=== PATIENT | male | born 1950 | race Caucasian/White ===

== ENCOUNTER 2017-06-18 05:40 | Inpatient (IN) | payer MEDICARE, OTHER ==
--- NOTE | 2017-06-11 12:44 | NUR ---
PATIENT HERE TODAY FOR PREADMISSION APPOINTMENT. PATIENT IS SCHEDULED TO HAVE A LEFT TOTAL KNEE REPLACEMENT ON 06/18/17. HE REPORTS HAVING A PHYSICAL THERAPY APPOINTMENT ON 06/05/17 AND WOULD LIKE PHYSICAL THERAPY SET UP AT THE [facility] AFTER SURGERY. PATIENT REPORTS HAVING 2 STEPS INTO THE HOME AND NUMEROUS STEPS INSIDE THE HOME. HE REPORTS THEY WILL BE MOVING THEIR BEDROOM TO THE MAIN FLOOR SO HE WILL NOT HAVE TO GO DOWN STAIRS. HE WILL BE INSTALLING A HAND RAIL OUTSIDE THIS WEEKEND TO HELP WITH GOING UP THE STAIRS. HE WAS OBTAINED A FRONT WHEELED WALKER AND IS GOING TO GET A SHOWER BENCH. HE WILL BE USING THE BATHROOM THAT HAS A TUB SHOWER COMBO. HIS BRAYDON WILL BE HERE WITH HIM ON DAY OF SURGERY AND WILL TRANSPORT HIM HOME AND TO APPOINTMENTS. THIS INFORMATION WILL BE SENT TO DR SCOTTY OROPEZA AND AMBER PLANNING FOR FURTHER FOLLOW UP.
[~2017-06-18] VITALS: Ht 180.3 cm; Wt 111.1 kg
[~2017-06-18 05:40] MED LIST: ALLOPURINOL300 MG PO; CARTIA XT180 MG PO; CINNAMON500 MG PO; ENALAPRIL MALEAT5 MG PO; GEMFIBROZIL600 MG PO; OMEPRAZOLE20 MG PO; PROBENECID500 MG PO; QUESTRAN PACKET4 GM PO
--- NOTE | 2017-06-18 09:30 | NUR ---
PT ARRIVED VIA HOSPITAL BED. PT AWAKE, ALERT AND ORIENTED TO ALL. DENIES NAUSEA, PAIN, OR OTHER CONCERNS AT THIS TIME. LEFT KNEE DRESSING CDI AT THIS TIME. TEDS, SCD'S, CRYOCUFF, AND HEEL PROTECTORS IN PLACE. SENSATION AT L4, L5, SLIGHT MOVEMENT NOTED, CAP REFILL 3 SEC. IV INFUSING WNL IN RIGHT HAND. PT SATTING 94% ON RA. AT BEDSIDE. PT TAKING SIPS OF WATER, GORDON WELL. CLEAR LIQUID TRAY ORDERED. CALL LIGHT WITHIN REACH.
--- NOTE | 2017-06-18 10:09 | OR ---
[facility] [address] [place], [place] [address] Signed DATE OF OPERATION: 06/18/2017 SURGEON: Rafael Clarke MD PREOPERATIVE DIAGNOSIS: degenerative joint disease severe, left knee. POSTOPERATIVE DIAGNOSIS: degenerative joint disease severe, left knee. PROCEDURE PERFORMED: Left total knee arthroplasty with computer navigation. SECURITIES LENDING TRADER: Brittany Aguilar MS4 ANESTHESIA: Spinal. BLOOD LOSS: Minimal. TOURNIQUET TIME: 68 minutes. IMPLANTS: Shannan Triathlon size 6 femur, size 5 tibia, 13 mm insert, and 35 mm patella. BRIEF HISTORY: Chester is a 67-year-old gentleman with severe arthritis in his knees. He had undergone nonoperative treatment, which was successful for a while, however, became more and more problematic. He wished to proceed with operative intervention. DESCRIPTION OF PROCEDURE: Once consent was obtained, he was taken to the operating room. After adequate anesthesia, placed on operating table. All downside pressure points are well padded. The left hip was placed on a hip bump and left leg was placed in proximal padded tourniquet and leg was prepped and draped in standard sterile fashion. Leg was exsanguinated using Esmarch bandage. Tourniquet inflated to 250 mmHg. Standard anterior approach through curved incision was taken through skin and subcutaneous Electronically Signed By: RAFAEL CLARKE MD 06/18/17 1009 PATIENT NAME: CHESTER ADAMS OPERATIVE REPORT DATE OF : 54 REPORT #: [id number] PHYSICIAN: RAFAEL CLARKE MD PCP: NO PRIMARY CARE PHYSICIAN REPORT IS CONFIDENTIAL AND NOT TO BE RELEASED WITHOUT AUTHORIZATION [facility] [address] [place], [place] [address] Signed tissue. Median parapatellar arthrotomy was performed. The infrapatellar fat pad was excised and the MCL was elevated of a sleeve around the posteromedial corner. The knee was flexed. The anterior horns of the menisci and the ACL were transected. The PCL was found to be intact. The navigation guide was pinned to the distal femur and the femur was registered with the computer. The cutting block was then pinned in neutral alignment. Distal femoral cut was made. Distal femur sized to a 6 and the 6 cutting block was pinned in line with the epicondylar axis. The anterior, posterior, and chamfer cuts were made. All osteophytes were excised as we went. There were multiple large osteophytes. Attention was then turned to the proximal tibia. The menisci removed to allow better visualization. The navigation guide was pinned to the tibia and the tibia was registered with the computer. A cutting block was then pinned in neutral alignment and the cut was made with care taken to protect the patellar tendon and MCL. Bone was excised as were any meniscal remnants. Posterior release was performed off the femur and posterior osteophytes removed. Flexion and extension gaps were sized and found to be symmetric at 13 mm. The trials were then positioned. Knee was taken through range of motion and found to be stable. Anderson test was negative. The patella was cut, sized, and drilled for a 35 patella. The distal femoral drill holes were made and the trials were removed. The proximal tibia was finished using the keel punch. The bone was pulse lavaged and packed with a dry Ray-Anjali. Cement was mixed when it reached proper consistency, displaced all implants on all bone surfaces. Tibia was impacted in position first and all excess cement was removed. The polyethylene was snapped into position. The femur was impacted. Again any remaining cement was removed. The knee was extended and nicely loaded. The patella was clamped and any remaining cement was removed. The cement was allowed to harden. Once it hardened sufficiently, the knee was flexed and the remaining cement was removed using osteotomes. The knee was pulse lavaged at intervals throughout the procedure. A total of 3 L antibiotic irrigation was used. The periarticular soft tissues were injected with 100 mL ropivacaine, Toradol mixture. The arthrotomy was closed using #2 Stratafix, 0 Stratafix for subcutaneous tissue, and jory for the skin. The wounds were dressed with Mepilex, Ag dressing, ABD and Alejandro wrap. He tolerated the procedure well. All sponge, needle, and instrument counts were correct. Rafael Clarke MD BA/MODL /[id number] Electronically Signed By: RAFAEL CLARKE MD 06/18/17 1009 PATIENT NAME: CHESTER ADAMS OPERATIVE REPORT DATE OF : 54 REPORT #: [id number] PHYSICIAN: RAFAEL CLARKE MD PCP: NO PRIMARY CARE PHYSICIAN REPORT IS CONFIDENTIAL AND NOT TO BE RELEASED WITHOUT AUTHORIZATION [address] [address] Signed Copies: ~ Electronically Signed By: RAFAEL CLARKE MD 06/18/17 1009 PATIENT NAME: CHESTER ADAMS OPERATIVE REPORT DATE OF : 54 REPORT #: [id number] PHYSICIAN: RAFAEL CLARKE MD PCP: NO PRIMARY CARE PHYSICIAN REPORT IS CONFIDENTIAL AND NOT TO BE RELEASED WITHOUT AUTHORIZATION
--- NOTE | 2017-06-18 10:40 | NUR ---
PT DROWSY, FALLS ASLEEP EASILY. SATTING 88% ON RA WHILE SLEEPING, PLACED ON 1L NC SATTING 93%. KNEE DRESSING REMAINS CDI. AT BEDSIDE.
--- NOTE | 2017-06-18 11:24 | NUR ---
PT SITTING UP IN BED, ATE ALL OF CLEAR LIQUID TRAY, GORDON WELL. ORDERED REG LUNCH. DENIES PAIN, PT HAS SENSATION TO TOES BUT STATED LEGS AND FEET ARE STILL "A LITTLE TINGLY". GOOD MOVEMENT. DRESSING CDI. CALL LIGHT WITHIN REACH.
--- NOTE | 2017-06-18 13:21 | NUR ---
PT ATE TURKEY SANDWICH, GORDON WELL. DENIES NEEDS OR CONCERNS AT THIS TIME. CALL LIGHT WITHIN REACH, AT BEDSIDE.
--- NOTE | 2017-06-18 13:59 | NUR ---
PATIENT RESTING IN BED WITH EYES CLOSED. IN ROOM. FRESH ICE IN CRYO. NO OTHER NEEDS AT THIS TIME. CALL BUTTON IN REACH.
--- NOTE | 2017-06-18 15:40 | NUR ---
PT SBA WITH WALKER TO RESTROOM, ATTEMPTED TO VOID BUT UNABLE TO. BLADDER SCANNED FOR 390ML OF URINE. PT WILL ATTEMPT TO VOID AGAIN SOON. PT AMB BACK TO RECLINER SITTING UP VISITING WITH FAMILY. DENIES PAIN OR OTHER CONCERNS AT THIS TIME. PT OCC DESATS TO 88% ON RA SO WILL KEEP PT ON 1LNC. PT ENCOURAGED TO USE I.S.
--- NOTE | 2017-06-18 17:50 | NUR ---
PT ATE ALL OF DINNER, GORDON WELL. SITTING UP IN RECLINER, AT BEDSIDE. DENIES PAIN OR OTHER CONCERNS. CALL LIGHT WITHIN REACH.
--- NOTE | 2017-06-18 19:12 | NUR ---
BEDSIDE REPORT RECEIVED FROM KRISTIE FELIX. PT SITTING IN CHAIR, AWAKE, ALERT, CONVERSING. RIVERA CATHETER DRAINING. CRYO CUFF WITH ICE TO LEFT KNEE, DRESSING CDI, SENSATION INTACT. PT DENIES ANY PAIN AT THIS TIME. IV SALINE LOCKED. HR 101, SPO2 93% ON RA. PT HAS ICE WATER, PERSONAL SUPPLIES, AND CALL LIGHT IN REACH.
--- NOTE | 2017-06-18 19:17 | NUR ---
PT UNABLE TO VOID. BLADDER SCANNED FOR 600ML. RIVERA PLACED, 750ML OF RETURN. PT GORDON WELL. AMB FROM BED TO RECLINER WITH WALKER. SITTING UP, TEDS, SCD'S, CRYOCUFF IN PLACE. PERSONAL BELONGINGS WITHIN REACH. PT DENIES PAIN OR OTHER CONCERNS. LEFT KNEE DRESSING CDI.
--- NOTE | 2017-06-18 20:45 | NUR ---
PT ASSESSMENT COMPLETE. SBA WITH FWW TO BED, PT GORDON WELL, USING WALKER EFFECTIVELY. DRESSING CDI ON LEFT KNEE, ICE IN CRYO CUFF, CRYO CUFF IN PLACE. SCDS, ROSA HOSE, HEEL PROTECTORS ON. CSM INTACT BLE, BUE. PT DENIES PAIN. IV FLUSHED WNL, SALINE LOCKED. PT TOLERATING ORAL FLUIDS WELL, DENIES NUASEA, BOWEL TONES ACTIVE X 4. RIVERA CATHETER DRAINING WNL, ORANGE IN COLOR DUE TO MEDICATION ADMIN. PT GIVEN CALL LIGHT, EDUCATED ON SAFETY, FALL PREVENTION. SPO2 95% ON ROOM AIR AT THIS TIME. WILL CONTINUE TO MONITOR.
--- NOTE | 2017-06-18 22:30 | NUR ---
STUDENT FINANCE ADVISOR RN IN PT ROOM, 1L OXYGEN BY NC APPLIED SPO2 91% ON ROOM AIR PT RESTING, PULSE OX ALARMING.
--- NOTE | 2017-06-18 22:51 | NUR ---
IN PT ROOM FOR ANCEF ADMINISTRATION, IV FLUSHED WNL. CRYO CUFF REFILLED WITH ICE AT THIS TIME, SCDS, ROSA HOSE, HEEL PROTECTORS IN PLACE. CRYO CUFF ON LEFT KNEE. PT GIVEN ICE WATER REQUESTED. CALL LIGHT IN REACH, LIGHTS OFF IN ROOM.
--- NOTE | 2017-06-19 00:38 | NUR ---
CHECKED ON PT, PT APPEARS TO BE SLEEPING, EYES CLOSED, BREATHING NON-LABORED, SPO2 95% ON 1L OXYGEN. SCDS, CRYO CUFF AND HEEL PROTECTORS IN PLACE, LIGHTS OFF IN ROOM.
--- NOTE | 2017-06-19 01:55 | NUR ---
PT APPEARS TO BE SLEEPING, AWAKENS TO RN VOICE, DROWSY, ORIENTED X 3. PT ON 1L OXYGEN BY NC SATURATING WNL. RIVERA EMPTIED. PT DENIES PAIN. CSM INTACT BLE. CRYO CUFF WITH ICE ON LEFT KNEE. LUNGS CLEAR THROUGHOUT ALL LOBES, HR REGULAR RHYTHM. BOWEL TONES ACTIVE X 4, ABD SOFT, PT DENIES NAUSEA. SCHEDULED IV TORADOL ADMINISTERED WNL. CALL LIGHT IN REACH. ROSA HANNA, SCDS, HEEL PROTECTORS IN PLACE.
--- NOTE | 2017-06-19 04:14 | NUR ---
CHECKED ON PT, PT APPEARS TO BE SLEEPING SPO2 95% ON 1L OXYGEN BY NC, SNORING, EYES CLOSED, SCDS, CRYO CUFF, HEEL PROTECTORS IN PLACE. LIGHTS OFF IN ROOM.
--- NOTE | 2017-06-19 06:40 | NUR ---
PATIENTS RIVERA REMOVED AND DOCUMNETED. PATIENT TOLERATED REMOVAL WELL. FAMILIA FLOWERS IN THE ROOM TO ADMIN MEDCIATIONS.
--- NOTE | 2017-06-19 06:52 | NUR ---
PT DENIES ANY PAIN AT THIS TIME. SCHEDULED TYLENOL ADMINISTERED. PT 95% ON 1L OXYGEN BY NC. ICE IN CRYO CUFF ON LEFT KNEE. SCDS, HEEL PROTECTORS, ROSA HOSE IN PLACE. PT GIVEN ICE WATER REQUESTED. ELENA TOM IN ROOM TO ASSIST PT TO RESTROOM FOR ORAL CARE. MIGUEL D/C'D BY KRISTIE SANCHES.
--- NOTE | 2017-06-19 06:56 | NUR ---
PT DENIES PAIN THROUGHOUT SHIFT, DENIES NAUSEA, TOLERATING REGULAR DIET WELL. DRESSING CDI, CSM INTACT BLE, SCDS, ROSA HOSE, CRYO CUFF, AND HEEL PROTECTORS IN PLACE. ON 1L OXYGEN W SLEEP SATURATING WNL. IV SALINE LOCKED. USING CALL LIGHT APPROPRIATELY. 1P SBA WITH FWW.
--- NOTE | 2017-06-19 07:32 | NUR ---
PATIENT AWAKE SITTING IN RECLINER. RECEIVED BEDSIDE REPORT FROM FAMILIA FLOWERS. NO PAIN AT THIS TIME. RIVERA DISCONTINUED AT 0630. WILL MONITOR URINE OUTPUT. EXPECT PHYSICAL THERAPY TO WORK WITH PATIENT AROUND 0900. SALINE LOCKED IN RIGHT HAND.
--- NOTE | 2017-06-19 08:27 | NUR ---
PATIENT SITTING UP IN CHAIR. FRESH COFFEE. CALL LIGHT WITHIN REACH. NO OTHER NEEDS AT THIS TIME.
--- NOTE | 2017-06-19 08:44 | NUR ---
pt plans to work with physical therapy at 0900. no pain at this time. likely home this afternoon with physical therapy approval.
--- NOTE | 2017-06-19 10:32 | NUR ---
MED REC COMPLETED
--- NOTE | 2017-06-19 11:09 | NUR ---
PT UNABLE TO VOID. BLADDER SCANNED. 655ML IN BLADDER. CALLED DR FAJARDO. ORDER TO REPLACE RIVERA CATHETER AND REMOVE AT 0600 TOMORROW. PATIENT WISHES TO TRY AGAIN UNTIL 1200. THIS RN WILL ALLOW THIS, BUT NOT WAIT PAST 1200.
--- NOTE | 2017-06-19 12:21 | NUR ---
catheter inserted at 1210. some pain with insertion, but relief of bladder afterwards. visitors at bedside now.
--- NOTE | 2017-06-19 12:51 | NUR ---
CATHETER EMPTIED BY PACKAGE MAKERMALKA. 975ML YELLOW URINE OUT.
--- NOTE | 2017-06-19 13:26 | NUR ---
PT IS TO BE DC'D TODAY. GUIDED SOME OF HIS FAMILY TO HIS RM FOR A VISIT. STAFF HAVE BEEN VERY BUSY GETTING HIM READY TO DC. WILL FOLLOW NEEDED
--- NOTE | 2017-06-19 17:39 | NUR ---
PATIENT DOING VERY WELL WITH PAIN CONTROL AND PHYSICAL THERAPY. UNABLE TO VOID AFTER CATHETER REMOVED THIS MORNING. CATHETER REPLACED AT 1200. REMOVE CATHETER AT 0600 TOMORROW. SBA WITH FWW. CRYOCUFF LEFT KNEE. MEPILEX AND AISHWARYA WRAP IN PLACE. C/D/I. TYLENOL/TORADOL SCHEDULED. SALINE LOCKED. PT/OT. REGULAR DIET.
--- NOTE | 2017-06-19 18:42 | NUR ---
PATIENT SITTING UP IN BED. FAMILY MEMBERS IN ROOM. ICE IN CRYO. RIVERA DRAINED. CALL LIGHT WITHIN REACH. NO OTHER NEEDS AT THIS TIME.
--- NOTE | 2017-06-19 19:20 | NUR ---
BEDSIDE REPORT RECEIVED FROM KRISTIE CARRILLO. PT LYING IN BED, SCDS, ROSA HOSE, HEEL PROTECTORS, AND CRYO CUFF WITH ICE IN PLACE. DRESSING CDI. PT RATES PAIN 2/10 "MUSCLE SORENESS". PRESENT AT BEDSIDE. PT ON ROOM AIR. RIVERA DRAINING. IV SALINE LOCKED. CALL LIGHT IN REACH.
--- NOTE | 2017-06-19 21:00 | NUR ---
PT ASSESSMENT COMPLETE. PT STATES 0/10 PAIN IN LEFT KNEE. DRESSING CDI, CSM INTACT BUE, BLE. CRYO CUFF REFILLED AT THIS TIME AND ON LEFT KNEE. SCDS, ROSA HOSE, HEEL PROTECTORS IN PLACE. LUNGS CLEAR THROUGHOUT ALL LOBES. RIVERA DRAINING, BOWEL TONES ACTIVE X 4. PT DENIES NAUSEA. GIVEN ICE WATER. AWAKE LYING IN BED. CALL LIGHT IN REACH. NO ADDL REQUESTS AT THIS TIME.
--- NOTE | 2017-06-19 21:53 | NUR ---
CRYO CUFF AND ICE WATER REFILLED. V/S I/O TAKEN.
--- NOTE | 2017-06-19 23:40 | NUR ---
CHECKED ON PT, EYES CLOSED, BREATHING NON-LABORED, APPEARS TO BE SLEEPING, ON ROOM AIR. SCDS, CRYO CUFF, HEEL PROTECTORS IN PLACE, RIVERA CATHETER DRAINING.
--- NOTE | 2017-06-20 02:30 | NUR ---
PT SLEEPING, EYES CLOSED, SNORING, AWAKENS EASILY TO RN ENTERING ROOM. PT DENIES ANY PAIN, CSM INTACT BLE, DRESSING CDI. CRYO CUFF WITH ICE TO LEFT KNEE, SCDS, HEEL PROTECTORS, AND ROSA HOSE IN PLACE. LUNGS CLEAR THROUGHOUT, HR REGULAR RHYTHM, BOWEL TONES ACTIVE. RIVERA CATHETER EMPTIED 500 MLS YELLOW URINE. IV FLUSHED WNL, SCHEDULED TORADOL ADMINISTERED, CALL LIGHT IN REACH.
--- NOTE | 2017-06-20 04:02 | NUR ---
PT APPEARS TO BE SLEEPING, EYES CLOSED, SNORING, VISIBLE CHEST RISE EQUAL BILATERALLY. LIGHTS OFF IN ROOM, SCDS, CRYO CUFF, HEEL PROTECTORS IN PLACE.
--- NOTE | 2017-06-20 05:34 | NUR ---
MIGUEL Zayas/Brisa WNL PT REQUESTING TO USE RESTROOM FOR BM AT THIS TIME, STATES HE WILL BE ABLE TO VOID WITH BM. SBA WITH FWW TO RESTROOM. PT RATES PAIN 2/10, DENIES NEED FOR PRN PAIN MEDICATIONS, PAIN TOLERABLE. INSTRUCTED TO USE CALL LIGHT IN RESTROOM WHEN FINISHED, VERBALIZED UNDERSTANDING.
--- NOTE | 2017-06-20 05:50 | NUR ---
PT ON ROOM AIR THROUGHOUT SHIFT. DRESSING CDI, CRYO CUFF WITH ICE ON LEFT KNEE, SCDS, ROSA HOSE, HEEL PROTECTORS IN PLACE. PT HAD LARGE BM THIS AM, RIVERA D/C'D WNL. PT ANXIOUS REGARDING INABILITY TO VOID, EDUCATION AND ENCOURAGEMENT PROVIDED. AMBULATING WELL, SBA WITH FWW. IV SALINE LOCKED. DENIES NAUSEA THORUGHOUT SHIFT.
--- NOTE | 2017-06-20 06:05 | NUR ---
SCHEDULED TYLENOL ADMINISTERED AT THIS TIME, PT SITTING UP IN CHAIR, CRYO CUFF ON LEFT KNEE. PT GIVEN COFFEE, ICE WATER REQUESTED. CALL LIGHT IN REACH, NO ADDL REQUESTS AT THIS TIME.
--- NOTE | 2017-06-20 06:40 | NUR ---
CALL LIGHT ANSWERED, PT C/O 06/21 PAIN AT THIS TIME IN LEFT KNEE "MUSCLES HURTING, SORE". 5MG OXYCODONE ADMINISTERED AT THIS TIME. PT HAS ICE WATER, COFFEE AND PERSONAL SUPPLIES IN REACH. CRYO CUFF WITH ICE ON LEFT KNEE. NO ADDL REQUESTS CALL LIGHT IN REACH.
--- NOTE | 2017-06-20 07:27 | NUR ---
BEDSIDE REPORT RECEIVED FROM FAMILIA FLOWERS. WHITE BOARD UPDATED. PATIENT SITTING UP IN RECLINER. OXYCODONE GIVEN FOR 4/10 PAIN IN LEFT KNEE. RIVERA REMOVED AT 0530. WILL MONITOR UO CLOSELY THIS MORNING.
--- NOTE | 2017-06-20 07:37 | NUR ---
PATIENT SITTING UP IN CHAIR. FRESH ICE WATER. PATIENT STATES THAT HE HAS NO PAIN. CALL LIGHT WITHIN REACH. NO OTHER NEEDS AT THIS TIME.
[2017-06-20] MEDS ORDERED: XARELTO10 MG PO (08:32)
[2017-06-20] MEDS ORDERED: TAMSULOSIN HCL0.4 MG PO (08:32)
[2017-06-20] MEDS ORDERED: MAPAP500 M1 PO (08:33)
[2017-06-20] MEDS ORDERED: DOCUSATE SODIU250 MG PO (08:33)
[2017-06-20] MEDS ORDERED: OXYCODONE HCL5 MG PO (08:33)
[2017-06-20] MEDS ORDERED: NEURONTIN300 MG PO (08:33)
[2017-06-20] MEDS ORDERED: MIRALAX17 GM PO (08:34)
[2017-06-20] MEDS ORDERED: DICLOFENAC POTA50 MG PO (08:34)
--- NOTE | 2017-06-20 09:42 | NUR ---
PATIENT SITTING UP IN CHAIR. FAMILY MEMBER IN ROOM. PATIENT STATES PAIN LEVEL IS A 3 OUT OF 10. PATIENT AMBULATED PRIOR WITH PTHERAPY. CALL LIGHT WITHIN REACH. NO OTHER NEEDS AT THIS TIME.
--- NOTE | 2017-06-20 10:04 | NUR ---
PATIENT ASSISTED TO BATHROOM SBA WITH FWW. GAVE WARM WATER TO RUN OVER GENETALIA IF UNABLE TO URINATE ON OWN. ALSO HAVE RUNNING WATER TO ASSIST. PATIENT SITTING ON TOILET NOW. WILL ALLOW TIME FOR PATIENT TO ATTEMPT VOID.
--- NOTE | 2017-06-20 10:44 | NUR ---
PATIENT SITTING UP IN CHAIR. FAMILY MEMBERS IN ROOM. CALL LIGHT WITHIN REACH. NO OTHER NEEDS AT THIS TIME.
--- NOTE | 2017-06-20 10:53 | NUR ---
director nursing service instructor bladder scanned patient and scanned 450ml in bladder. unable to void. will continue to monitor until bladder scan shows >500ml.
--- NOTE | 2017-06-20 11:49 | NUR ---
PT ABLE TO URINATE 600ML INTO URINAL.
--- NOTE | 2017-06-20 11:58 | NUR ---
CALLED DR FAJARDO REGARDING PT VOIDING 600. DR FAJARDO SAID TO PUT IN DC ORDER AND PT OUTPT ORDER. PRESCRIPTIONS ON CHART.
--- NOTE | 2017-06-20 13:43 | NUR ---
PT STILL UNABLE TO VOID WILL GO HOME WITH CATHETER, AND HOME HEALTH. HE SEEMS READY FOR DC, HIS BY HIS SIDE. REQUESTED TO SEE [place]. PT UNDERSTOOD, EXTENDED A BLESSING WILL FOLLOW NEEDED
--- NOTE | 2017-06-21 09:39 | NUR ---
FAXED CHART NOTES AND ORDER TO [facility] INCLUDING FACESHEET, H AND P, OP NOTES, PROG NOTES, PT AND OT EVAL AND NOTES INCLUDED DC PACKET.
--- NOTE | 2017-06-21 10:38 | NUR ---
RECIEVED FAX CONFIRMATION AND ALSO TALKED TO FREDDY AT [facility].
== END 2017-06-20 13:10 | disposition home health service (06) | DRG 470 ==
LOC: OPS 05:40 → DS 05:40 → EDSTATUS 06:45 → OPS 06:45 → MS 09:30 → OPS 09:30 → MS 13:10
PROVIDERS: ADMIT Specialist
PROC: 8E0YXBZ Computer Assisted Procedure of Lower Extremity (ICD-10-PCS; 2017-06-18)
PROC: 3E0T3BZ Introduction of Anesthetic Agent into Peripheral Nerves and Plexi, Percutaneous Approach (ICD-10-PCS; 2017-06-18)
PROC: 3E0T33Z Introduction of Anti-inflammatory into Peripheral Nerves and Plexi, Percutaneous Approach (ICD-10-PCS; 2017-06-18)
PROC: 0SRD0J9 Replacement of Left Knee Joint with Synthetic Substitute, Cemented, Open Approach (ICD-10-PCS; principal; 2017-06-18 06:45)
DX: M17.12 Unilateral primary osteoarthritis, left knee (principal); G89.18 Other acute postprocedural pain; E66.9 Obesity, unspecified; R33.9 Retention of urine, unspecified; I10 Essential (primary) hypertension; M10.9 Gout, unspecified; K21.9 Gastro-esophageal reflux disease without esophagitis; E78.5 Hyperlipidemia, unspecified; Z79.899 Other long term (current) drug therapy; Z68.34 Body mass index [BMI] 34.0-34.9, adult; Z87.891 Personal history of nicotine dependence
CPT/HCPCS: 01402; 36415; 64447; 76942; 80048; 85025; 97110; 97116; 97161; C1713; C1776; G8978; G8979; J0690; J1100; J1885; J2250; J2274; J2550; J2704; J2765; J2795; J3010; J7120

== ENCOUNTER 2024-06-09 06:46 | Day surgery (SDC) | payer MEDICARE, OTHER ==
[2024-05-27 15:14] VITALS: BP 103/56
[~2024-06-09] VITALS: Ht 177.8 cm; Wt 114.5 kg
[2024-06-09] VITALS (7 sets, daily range): BP systolic 100–149; BP diastolic 81–89
[~2024-06-09 06:46] MED LIST changes: -ALLOPURINOL300 MG PO; -CINNAMON500 MG PO; +DEXAMETHASONE SOD PHOS 4 MG/ML VIAL ONE; +DICLOFENAC POTA50 MG PO; +DOCUSATE SODIU250 MG PO; +FAMOTIDINE 20 MG/ 2 ML VIAL ONE; +KETAMINE in NS 50 MG/5 ML SYR ONE; +KETOROLAC TROMETHAMINE 30 MG/ML VIAL ONE; +LACTATED RINGER'S 1,000 ML IV ONE; +LACTATED RINGER'S 1,000 ML IV SCH; +LIDOCAINE HCL 2% 5 ML SDV ONE; +LOSARTAN POTASS50 MG PO; +MAPAP500 M1 PO; +MELATONIN10 MG PO; +METOCLOPRAMIDE HCL 10 MG/2 ML SDV ONE; +MIDAZOLAM HCL 2 MG/2 ML VIAL ONE; +MIRALAX17 GM PO; +NEURONTIN300 MG PO; +OXYCODONE HCL5 MG PO; +ROSUVASTATIN CAL5 MG PO; +Ropivacaine HCl 0.5% 30 ML VIAL ONE; +Ropivacaine HCl 20 MG/10 ML AMP ONE; +SODIUM CHLORIDE 0.9% 20 ML IV ONE; +TAMSULOSIN HCL0.4 MG PO; +VITAMIN B121000 MCG PO; +VITAMIN D250 MCG PO; +XARELTO10 MG PO; +ZETIA10 MG PO; +dexmedeTOMIDine HCl 200 MCG/2 ML VIAL ONE; +fentaNYL citrate 100 MCG/2 ML VIAL ONE; +ondansetron HCL 4 MG/2 ML VIAL ONE; +propofoL 200 MG/20 ML VIAL ONE
[2024-06-09] MEDS ORDERED: CEFAZOLIN SODIUM 2 GM/20 ML SYR IV SCH (07:00)
[2024-06-09] MEDS ORDERED: ROPIVACAINE IN 0.9% SOD CHL/PF 545 ML ELS.PMP.HR IRRIGATION SCH (07:00)
[2024-06-09] MEDS ORDERED: INTRA-ARTICULAR ANALGESIC INJECTION XX SCH (07:00)
[2024-06-09] MEDS ORDERED: GABAPENTIN 600 MG TAB PO SCH (07:00)
[2024-06-09] MEDS ORDERED: ondansetron HCL 4 MG TAB PO SCH (07:00)
[2024-06-09] MEDS ORDERED: PANTOPRAZOLE SODIUM 40 MG TABEC PO SCH (07:00)
[2024-06-09] MEDS ORDERED: TRANEXAMIC ACID IN NACL,ISO-OS 1,000 MG/100 ML PIGGYBACK IV SCH ×2 (07:00→11:00)
[2024-06-09] MEDS ORDERED: OXYCODONE HCL 5 MG TAB PO SCH (07:00)
[2024-06-09] MEDS ORDERED: LIDOCAINE HCL 1% 5 ML SDV INJ ONE (07:00)
[2024-06-09] MEDS ORDERED: IBLOOD GLUCOSE TEST STRIP 1 EA TEST VI PRN ×2 (07:00→08:00)
[2024-06-09] MEDS ORDERED: ALLOPURINOL300 MG PO (07:17)
[2024-06-09] MEDS ORDERED: PRILOSEC OTC20 MG PO (07:20)
[2024-06-09] MEDS ORDERED: CINNAMON500 MG PO (07:20)
--- NOTE | 2024-06-09 07:50 | NUR ---
PT NOT VAILABLE FOR VISIT. PROVIDED PRAYER.
[2024-06-09] MEDS ORDERED: droPERidol 5 MG/2 ML VIAL IV PRN (08:00)
[2024-06-09] MEDS ORDERED: MORPHINE SULFATE 10 MG/ML VIAL IV PRN (08:00)
[2024-06-09] MEDS ORDERED: ondansetron HCL 4 MG/2 ML VIAL IV PRN (08:00)
[2024-06-09] MEDS ORDERED: PROCHLORPERAZINE EDISYLATE 10 MG/2 ML VIAL IV PRN (08:00)
[2024-06-09] MEDS ORDERED: NALOXONE HCL 0.4 MG SYR IV PRN (08:00)
[2024-06-09] MEDS ORDERED: METOCLOPRAMIDE HCL 10 MG/2 ML SDV IV PRN (08:00)
[2024-06-09] MEDS ORDERED: fentaNYL citrate 50 MCG/ML SDV IV PRN (08:00)
[2024-06-09] MEDS ORDERED: KETOROLAC TROMETHAMINE 15 MG/ML VIAL IV PRN (08:45)
[2024-06-09] MEDS ORDERED: OXYCODONE HCL 5 MG TAB PO PRN (08:45)
[2024-06-09] MEDS ORDERED: VASOPRESSIN 20 UNITS/ML VIAL ONE (09:28)
[2024-06-09] MEDS ORDERED: PHENYLEPHRINE HCL 10 MG/ML VIAL ONE (09:30)
[2024-06-09] MEDS ORDERED: ePHEDrine sulfate 50 MG/ML AMP ONE (09:42)
[2024-06-09] MEDS ORDERED: CEFUROXIME250 MG PO (10:23)
[2024-06-09] MEDS ORDERED: SENNA LAX8.6 MG PO (10:23)
[2024-06-09] MEDS ORDERED: OXYCODONE HCL5 MG PO (10:23)
[2024-06-09] MEDS ORDERED: GABAPENTIN300 MG PO (10:23)
--- NOTE | 2024-06-09 11:00 | NUR ---
06/09/24 1100 Celi Lucia 1034-PT ARRIVES TO PACU VIA STRETCHER, RESTING SUPINE NPA AND OPA IN PLACE, VSS ON 10L VIA MASK, RR EVEN AND UNALBORED. 1035-PT AWAKENS ON OWN, AIRWAYS REMOVED AND TITRATED TO RA, VS REMAIN STABLE, RR EVEN AND UNLABORED. 1040-REFRIGERATOR MOVER AT BEDSIDE FOR POST OP RT KNEE X-RAY. CRYO CUFF APLLIED TO RT KNEE. HOB RAISED PER PT REQUEST. VSS ON RA, PT DENIES PAIN OR NAUSEA.
--- NOTE | 2024-06-09 12:05 | NUR ---
PT ARRIVES TO DS FROM PACU VIA STRETCHER. PT REPORTS PAIN IS TOLERABLE AT 5/10, BUT STATES IT IS ACHEY AND TIGHT. ICE PACK REPOSITIONED TO POSTERIOR ASPECT OF KNEE. PT STATES PERIODIC EPISODES OF LIGHT NAUSEA, NO URGE FOR EMESIS. 4 MG OF ZOFRAN GIVEN IV PER KAYY JENKINS VO. REPORT RECEIVED FROM SAMANTHA RN, AT BEDSIDE. PT REQUESTS TO SIT AT BEDSIDE FOR A MOMENT D/T LEG DISCOMFORT. PT STATES MOMENTARILY RELIEVED, BUT TIGHTNESS REMAINS ON POSTERIOR ASPECT. PT EATING PUDDING AND CRACKERS AT THIS TIME, CALL LIGHT WITHIN REACH.
[2024-06-09] MEDS ORDERED: ondansetron HCL 4 MG/2 ML VIAL ONE (12:29)
[2024-06-09] MEDS ORDERED: ondansetron HCL 4 MG/2 ML VIAL IV ONE (12:30)
--- NOTE | 2024-06-09 13:05 | NUR ---
IN ROOM FOR PT ASSESSMENT AND VS. PT STATES PAIN HAS REDUCED TO 4/10, BUT REQUESTS PRN PAIN MED AT THIS TIME. PT STATES NAUSEA STILL IS ACTING IN WAVES, BUT NOT PRESENT AT THIS TIME. PRN OXY GIVEN (SEE EMAR). PT SAYS HE IS GOING TO TRY AND GET SOME SLEEP. REMAINS AT BEDSIDE. CALL LIGHT WITHIN REACH. CPOX IN PLACE.
--- NOTE | 2024-06-09 13:24 | NUR ---
PER CPOX, O2 TO 87% WHILE PT SLEEPING. 2L OF O2 VIA NC IN PLACE. O2 >98% AT THIS TIME. RESPIRATIONS EVEN AND UNLABORED, NO SIGNS OF DISTRESS. CALL LIGHT WITHIN REACH, AT BEDSIDE.
--- NOTE | 2024-06-09 14:27 | OR ---
[facility] [address] [place], [place] [address] Signed DATE OF OPERATION: 06/09/2024 SURGEON: Rafael Clarke MD PREOPERATIVE DIAGNOSIS: Degenerative joint disease, right knee. POSTOPERATIVE DIAGNOSIS: Degenerative joint disease, right knee. PROCEDURE PERFORMED: Right total knee arthroplasty with Alex. BATTERY INSPECTOR: Gisela Maradiaga PA-C. Gisela was present and critical for all portions of procedure. ANESTHESIA: Spinal. BLOOD LOSS: 200 mL. TOURNIQUET TIME: Zero. IMPLANTS: Shannan Triathlon size 6, 10 mm polyethylene and a 35 mm patella. BRIEF HISTORY: Chester is a 74-year-old gentleman with progressive worsening of osteoarthritis in his right knee. He has undergone left total knee with good results, wished to proceed with the right. DESCRIPTION OF PROCEDURE: Once consent was obtained, he was taken to the operating room. After adequate anesthesia, he was placed on operating table. All downside pressure points were well padded and a right hip bump was placed. The leg was then prepped and draped in a standard sterile fashion. The knee was approached through a standard anterior midline incision, carried through the skin and subcutaneous tissue. Skin flaps were developed Electronically Signed By: RAFAEL CLARKE MD 06/09/24 1427 PATIENT NAME: CHESTER ADAMS OPERATIVE REPORT DATE OF : 54 REPORT #: [id number] PHYSICIAN: RAFAEL CLARKE MD PCP: PATRICIA CARRENO MD REPORT IS CONFIDENTIAL AND NOT TO BE RELEASED WITHOUT AUTHORIZATION [facility] [address] [place], [place] [address] Signed medially and laterally. The mid vastus arthrotomy was then performed. All bleeders were cauterized as we went. The MCL was elevated as a sleeve around the posteromedial corner. The infrapatellar fat pad was excised and the anterior horns of the menisci were transected as was the ACL. The computer arrays were then placed in the distal femur and proximal tibia. The leg was registered with the computer and the fine anatomic points of the knee were registered. The four ligamentous poses were undertaken and slight adjustments were made to adjust for this and for his 15 degree flexion contracture. Once this was completed, the robot was brought in and the 4 straight cuts and 2 angle cuts were made with care taken to protect the patellar tendon and MCL. The bony remnants were removed as were any remaining osteophytes. The posterior osteophytes were removed off the femur and a fairly extensive posterior release was performed. Once this was completed, the trials were positioned. The knee was taken from 0 to 130 degrees with good stability and the patella tracked well. The patella was then cut sized and drilled for a 35 patella. The distal femoral drill holes were completed. The proximal tibia was finished using the keel punch and the four drill holes. Once this was completed, the prosthesis was obtained. The tibia was impacted in position first followed by the polyethylene. The femur was then impacted. The knee was extended and loaded. The patella was clamped into position until it was seated well flushed. The patellar tracking was then checked again and found to be good. Once this was completed, the periarticular soft tissues were injected with 100 mL of ropivacaine and Toradol mixture. The knee was irrigated with one bottle of Surgiphor followed by normal saline. The On-Q pain pump was percutaneously placed into the adductor canal from the suprapatellar pouch. The arthrotomy was then closed using a combination of #2 FiberWire and #2 Stratafix. The subcutaneous tissue was closed using 0 Stratafix, the skin with 3-0 Stratafix. The wound was sealed with LiquiBand and Steri-Strips and dressed with Acticoat-7 dressing, ABD, and Alejandro wrap. He tolerated the procedure well. All sponge, needle, and instrument counts were correct. Rafael Clarke MD BA/MODL /[id number] Electronically Signed By: RAFAEL CLARKE MD 06/09/24 1427 PATIENT NAME: CHESTER ADAMS OPERATIVE REPORT DATE OF : 54 REPORT #: [id number] PHYSICIAN: RAFAEL CLARKE MD PCP: PATRICIA CARRENO MD REPORT IS CONFIDENTIAL AND NOT TO BE RELEASED WITHOUT AUTHORIZATION [address] [place], [place] [address] Signed Copies: ~ Electronically Signed By: RAFAEL CLARKE MD 06/09/24 1427 PATIENT NAME: CHESTER ADAMS SHASTA OPERATIVE REPORT DATE OF : 54 REPORT #: [id number] PHYSICIAN: RAFAEL CLARKE MD PCP: PATRICIA CARRENO MD REPORT IS CONFIDENTIAL AND NOT TO BE RELEASED WITHOUT AUTHORIZATION
--- NOTE | 2024-06-09 14:30 | NUR ---
BERT WITH PHYSICAL THERAPY IN ROOM TO WORK WITH PT AT THIS TIME. PT STATES PAIN HAS REDUCED AND PT STATES IT IS TOLERABLE AT THIS TIME. SMALL AMOUNT OF BLEEDING FROM ONQ PUMP TUBING INSERTION SITE, REINFORCED W/OPSITE. NO ACUTE CHANGES FROM PREVIOUS ASSESSMENT. DURING PHYSICAL THERAPY EVALUATION IN BED, PT HAS SMALL BROWN BOWEL MOVEMENT. TOTAL BED CHANGE, GOWN CHANGE, AND TRAVON CARE PERFORMED W/ ASSISTANCE AT THIS TIME. PT UNABLE TO URINE VOID. PT STATES HE WOULD LIKE TO WALK W/PHYSICAL THERAPY AND THEN TRY AGAIN.
--- NOTE | 2024-06-09 14:40 | NUR ---
PT IN RESTROOM W/BERT FROM PHYSICAL THERAPY, PT UNABLE TO PEE AT THIS TIME. IN RESTROOM WELL AT PT REQUEST.
[2024-06-09] MEDS ORDERED: ACETAMINOPHEN 500 MG TAB PO SCH (15:00)
[2024-06-09] MEDS ORDERED: GABAPENTIN 300 MG CAP PO SCH (15:00)
--- NOTE | 2024-06-09 15:04 | NUR ---
PT OFF OF UNIT VIA PRADEEP MCCLENDON FROM PHYSICAL THERAPY AT THIS TIME. PT REMAINS IN PT ROOM.
--- NOTE | 2024-06-09 15:15 | NUR ---
PT BACK FROM PHYSICAL THERAPY AND IN ROOM. AT BEDSIDE. PER BERT FROM PHYSICAL THERAPY, PT HAS PASSED.
--- NOTE | 2024-06-09 15:25 | NUR ---
PT REMAINS UNABLE TO URINATE. PT BLADDER SCANNED FOR VOLUME OF 562 ML. PT STATES HE WILL CONTINUE TO DRINK WATER. CALL LIGHT WITHIN REACH, PT IN ROOM AT BEDSIDE.
[2024-06-09] MEDS ORDERED: CEFAZOLIN SODIUM 3 GM/30 ML SYR IV SCH (16:00)
--- NOTE | 2024-06-09 16:00 | NUR ---
PT IN ROOM ATTEMPTING TO URINATE, PT STILL UNABLE TO URINATE BY 1420. PT BACK TO ROOM AND SCOTTY YUSUF UPDATED ON PT STATUS. PT TO STAY UNTIL 1700 FOR URINATION, AND IF UNABLE TO URINATE, VO TO STRAIGHT CATH AND SEND TO MS FLOOR FOR EXTENDED RECOVERY. PT AND PT UPDATED ON PLAN OF CARE. NO FURTHER QUESTIONS AT THIS TIME.
--- NOTE | 2024-06-09 16:25 | NUR ---
PT BLADDER SCANNED AGAIN FOR VOLUME OF 626 ML. PT CONTINUES TO DRINK WATER AND UNDERSTANDS IF UNABLE TO PEE, WILL BE STRAIGHT CATH BY 1700. CALL LIGHT WITHIN REACH, AT BEDSIDE.
--- NOTE | 2024-06-09 16:40 | NUR ---
ORAL GABAPENTIN AND TYLENOL GIVEN. IV ANCEF GIVEN (SEE EMAR). PT REPORTS NAUSEA 5 MINUTES POST ANCEF ADMIN, EMESIS X1 OF 75 ML OF CLEAR/YELLOW FLUID. PT STATES HE FEELS GREAT POST EMESIS. NO VISIBLE MEDICATIONS IN EMESIS. CALL LIGHT WITHIN REACH, PT STATES NO FURTHER NEEDS OR QUESTIONS AT THIS TIME.
[2024-06-09] MEDS ORDERED: LIDOCAINE 2% VISCOUS 6 ML SYR TOP ONE ×2 (17:15→20:45)
--- NOTE | 2024-06-09 17:25 | NUR ---
PT STILL UNABLE TO VOID AT 1700, PT STRAIGHT CATHED PER VO FROM SCOTTY YUSUF. STERILITY MAINTAINED BY THIS RN, 650 ML OF CLEAR/YELLOW URINE DRAINED FROM BLADDER. MS FLOOR ROOM 122 UPDATE TO PT AND PT , VERBAL UNDERSTANDING THAT CRITERIA OF DC DEPENDENT ON VOID.
--- NOTE | 2024-06-09 17:45 | NUR ---
PT TO MS RM 122 VIA STRETCHER AND PT SLID SELF OVER TO BED W/MINIMAL ASSISTANCE REQUIRED. HEEL PROTECTORS, CRYO CUFF, ONQ @ 4, FOOT PUMPS IN PLACE. REPORT GIVEN TO MIGUEL FLOWERS, DRESSING VISUALIZED W/ALBERTO RN. VS TAKEN. CALL LIGHT WITHIN REACH. AT BEDSIDE. ALL BELONGINGS IN PT POSSESSION AT THIS TIME. SCOTTY YUSUF CALLED AND UPDATED, NO NEW ORDERS AT THIS TIME.
--- NOTE | 2024-06-09 17:55 | NUR ---
PATIENT ARRIVED TO MED SURG, VSS, PATIENT RATES PAIN 1/10. RIGHT KNEE DRESSING IS CDI, CRYO CUFF IS INTACT. PATIENT IS SALINE LOCKED. PATIENT STRAIGHT CATHED AT 1730, PLAN TO GET UP TO BATHROOM AT 1900. IN ROOM WITH PATIENT.
[2024-06-09] MEDS ORDERED: ASPIRIN325 MG PO (18:23)
--- NOTE | 2024-06-09 20:20 | NUR ---
RECEIVED REPORT. VITALS, ASSESSMENT. AT BEDSIDE, MENTIONS PT FELT NAUSEATED EARLIER, THOUGH NOT CURRENTLY. PT PAIN AT 02/21. PT DENIES FEELING NEED TO URINATE. MENTIONS HE HAS NOT DRANK A LOT SINCE HIS CATHETER WAS REMOVED. GIVEN EVENING MEDS INCLUDING FLOWMAX, AND GIVEN COFFEE, PEPSI, AND ICE WATER TO FACILITATE. PLAN TO ATTEMPT VOIDING AT 2029. CALL LIGHT IN REACH
--- NOTE | 2024-06-09 20:45 | NUR ---
PHONE CALL FROM , NOTIFIED NO URINE OUTPUT, pt DRINKING PO FLUIDS AT THIS TIME. TELEPHONE ORDER FOR RIVERA OVERNIGHT, REMOVE AT 0600, IF pt UNABLE TO VOID. ORDER REPEATED BACK AND UPDATED. PRIMARY RN UPDATED.
[2024-06-09] MEDS ORDERED: SENNOSIDES 1 TAB PO SCH (21:00)
[2024-06-09] MEDS ORDERED: TAMSULOSIN HCL 0.4 MG CAP PO SCH (21:00)
--- NOTE | 2024-06-09 21:08 | NUR ---
PHONE CALL TO MD, UPDATED pt ABLE TO VOID. TELEPHONE ORDER RECEIVED TO DISCHARGE pt. PRIMARY RN UPDATED.
--- NOTE | 2024-06-09 21:20 | NUR ---
IV ON LEFT HAND REMOVED AND COVERED WITH GAUZE AND COBAN.
[2024-06-10] MEDS ORDERED: cefuroxime axetiL 250 MG TAB PO SCH (09:00)
== END 2024-06-09 21:30 | disposition home or self-care (01) ==
LOC: DS 06:46 → MS 17:45 → DS 21:30
PROVIDERS: ATTEND Specialist
PROC: 0SRC0JZ Replacement of Right Knee Joint with Synthetic Substitute, Open Approach (ICD-10-PCS; principal; 2024-06-09 09:05)
DX: M17.11 Unilateral primary osteoarthritis, right knee (principal); K21.9 Gastro-esophageal reflux disease without esophagitis; E78.00 Pure hypercholesterolemia, unspecified; I10 Essential (primary) hypertension; Z79.899 Other long term (current) drug therapy; Z88.8 Allergy status to other drugs, medicaments and biological substances
CPT/HCPCS: 01402; 64447; 64450; 64454; 73560; 76942; 85025; 97161; 97530; A9270; C1713; C1776; J0690; J1100; J1885; J2003; J2250; J2270; J2371; J2405; J2704; J2765; J2795; J3010; J3490; J7121